=== PATIENT | male | born 1955 | race Caucasian/White ===

== ENCOUNTER 2017-07-12 08:04 | Outpatient (CLI) | payer BC ==
--- NOTE | 2017-07-12 11:27 | CT ---
CT OF ABDOMEN AND PELVIS PERFORMED WITH IV CONTRAST ENHANCEMENT: Date: 07/12/17 HISTORY: Patient with prostate cancer, with rising PSA. History of prostatectomy and radiation. COMPARISON: 04/07/15 study. FINDINGS: The lung bases are clear of any infiltrates. There is some gravity-dependent atelectasis. The liver, spleen, pancreas, and gallbladder regions appear unremarkable. The liver measures 18.7 cm in length. Spleen appears within normal limits of size. Right and left adrenal glands are normal in appearance. An upper pole right renal cyst is noted on th e anterolateral cortex. It is slightly enlarged as compared to the prior exam at 2.5 as compared to 2 .2 cm, but has benign features. A second exophytic mass involving the mid to lower pole region of the right kidney shows peripheral calcification and increased attenuation, but is stable in size at appr oximately 2.0 cm. There is a small, subcentimeter, exophytic density involving the left kidney most c ompatible with a cyst. There is no significant periaortic or mesenteric adenopathy. CT of pelvis was performed with contrast enhancement. Bladder wall is diffusely thickened. There is s ome minimal fat stranding seen within the pelvis. The sigmoid colon in this region is not distended, and therefore it was somewhat difficult to assess, although appears slightly thick-walled. There are some diverticular changes. Changes could be on the basis of post radiation. I do not appreciate any p elvic lymphadenopathy. Review of osseous structures show some arthritic changes of the spine and hips. IMPRESSION: 1. Stable appearance to a Bosniak II lesion involving the right kidney. It has peripheral calcificat ion and is of higher attenuation than a typical cyst. It is stable in size at 2.0 cm as compared to 2014 study. 2. No signs of any evidence for prostate recurrence. No signs of any development of any significant lymphadenopathy or any type of bone lesion. No liver lesion seen. 3. Bladder wall thickening and suggestion of some possible wall thickening to the sigmoid colon, whi ch is probably on the basis of post radiation change. POS: BLADIMIR
== END 2017-07-12 08:05 | disposition home or self-care (01) ==
LOC: CT 08:04
PROVIDERS: ATTEND Radiology Radiation Oncology
DX: C61 Malignant neoplasm of prostate (principal); N28.9 Disorder of kidney and ureter, unspecified; N32.89 Other specified disorders of bladder
CPT/HCPCS: 74177; 82565

== ENCOUNTER 2017-07-13 10:49 | Outpatient (CLI) | payer BC ==
--- NOTE | 2017-07-13 15:24 | NM ---
WHOLE BODY BONE SCAN: Date: 07/13/17 INDICATION: Malignant neoplasm of prostate. RADIOPHARMACEUTICAL: 30.5 mCi technetium-99m MDP IV. FINDINGS: There are new foci of radiotracer accumulation involving the posterior left acromial spine as well as the posterior left 9th rib. Additional focus is seen involving the distal left radius, which was pre sent on the prior exam and may reflect degenerative changes. Activity is seen within the left antecub ital fossa, likely related to injection site. There is some degenerative activity seen involving the feet and knees. IMPRESSION: New foci of activity involving the left posterior 9th rib and left acromial spine. In light of the pa stephane's history of prostate cancer, this is suspicious for metastatic disease. Recommend dedicated ra diographs of the left scapula, as well as left-sided rib series. Alternatively, a CT examination may be helpful of the thorax to evaluate for osseous metastatic disease in this location. POS: HILARIA
== END 2017-07-13 10:50 | disposition home or self-care (01) ==
LOC: NM 10:49
PROVIDERS: ATTEND Radiology Radiation Oncology
DX: C61 Malignant neoplasm of prostate (principal); R93.7 Abnormal findings on diagnostic imaging of other parts of musculoskeletal system; Z90.79 Acquired absence of other genital organ(s)
CPT/HCPCS: 78306; A9503

== ENCOUNTER 2017-07-27 10:50 | Outpatient (CLI) | payer BC | END 2017-07-27 10:51 | disposition home or self-care (01) | LOC: BICCT 10:50 | PROVIDERS: ATTEND Internal Medicine Medical Oncology | DX: J43.8 Other emphysema; I77.810 Thoracic aortic ectasia; G95.89 Other specified diseases of spinal cord; C79.51 Secondary malignant neoplasm of bone | CPT/HCPCS: 71250 ==

== ENCOUNTER 2017-08-27 15:49 | Outpatient (CLI) | payer BC | END 2017-08-27 15:50 | disposition home or self-care (01) | LOC: BICULT 15:49 | PROVIDERS: ATTEND Urology | DX: C61 Malignant neoplasm of prostate (principal); N43.3 Hydrocele, unspecified | CPT/HCPCS: 76870; 93976 ==

== ENCOUNTER 2017-09-06 14:21 | Outpatient (CLI) | payer BC ==
[2017-09-06 15:27] LABS: Hemoglobin 13.9 g/dL (14.0-18.0); Mean Corpuscular Hemoglobin 33.5 pg (27.0-31.0); Mean Corpuscular Volume 98.6 fl (80.0-94.0); Mean Platelet Volume 6.7 fL (7.4-10.4); Platelet Count 236 thou/uL (130-400); RBC Distribution Width 11.6 % (11.5-14.5); Red Blood Cell (RBC) Count 4.16 mill/uL (4.70-6.10); White Blood Cell (WBC) Count 8.4 thou/uL (4.8-10.8)
[2017-09-06 15:30] LABS: Bilirubin Small (Negative); Blood, Urine Negative (Negative); Clarity CLEAR (Clear); Glucose, Urine (Dipstick) Negative (Negative); Leukocyte Negative (Negative); Nitrite Negative (Negative); Protein, Urine (Dipstick) Trace mg/dL (Neg-Trace); Specific Gravity, Urine 1.033 (1.002-1.036)
[2017-09-06 15:31] LABS: Bacteria/HPF None Seen HPF (None Seen); Squamous Epithelial 0-3 HPF (0-3); WBC/HPF 0-3 HPF (0-3)
[2017-09-06 15:32] LABS: Pathc Cast-AUWi Flag 3.77 (0-2.49)
[2017-09-06 15:34] LABS: PTT 37.6 SEC (22.9-36.1); Prothrombin Time 13.7 SEC (12.0-14.7)
--- NOTE | 2017-09-06 15:45 | RAD ---
TWO VIEWS OF THE CHEST: 09/06/17 COMPARISON: None. HISTORY: Preoperative radiograph. FINDINGS: Two views of the chest show normal sized cardiomediastinal silhouette. There is no evidence of consol idation, mass, or pleural effusion. The bones are unremarkable. IMPRESSION: No evidence of acute cardiopulmonary disease. POS: [facility]
[2017-09-06 15:46] LABS: Anion Gap 12 mmol/L (10-20); BUN (Urea Nitrogen) 18 mg/dL (8.4-25.7); Calc. Creatinine Clearance 0 mL/min (70-130); Calcium 9.3 mg/dL (7.8-10.44); Carbon Dioxide 25 mmol/L (23-31); Chloride 103 mmol/L (98-107); Estimated GFR-MDRD 58; Glucose 87 mg/dL (80-115); Potassium 4.2 mmol/L (3.5-5.1); RBC/HPF 0-3 HPF (0-3); Sodium 136 mmol/L (136-145)
[2017-09-06 15:49] LABS: Hyaline Casts/LPF 7-10 HYALINE CAST LPF (0-3 Hyaline); Other Casts/LPF 0-3 FINELY GRAN LPF (0-3 Hyaline)
== END 2017-09-06 14:22 | disposition home or self-care (01) ==
LOC: LABBT 14:21
PROVIDERS: ATTEND Urology
DX: Z01.818 Encounter for other preprocedural examination (principal); C61 Malignant neoplasm of prostate; R31.29 Other microscopic hematuria
CPT/HCPCS: 71046; 80048; 81001; 85027; 85610; 85730; 87086

== ENCOUNTER 2017-09-12 07:06 | Day surgery (SDC) | payer BC ==
[2017-09-06 14:42] VITALS: BMI 21.5
[2017-09-12] MEDS ORDERED: CEFAZOLIN/Water 2 GM/20 ML SYRINGE ONE (07:56)
[2017-09-12] MEDS ORDERED: Levofloxacin 500 mg/D5W 100 ml Premix Bag ONE (07:56)
[2017-09-12] MEDS ORDERED: Bupivacaine 0.25% HCL 30 ML VIAL ONE (09:40)
[2017-09-12] MEDS ORDERED: Fentanyl 100 MCG/2 ML VIAL ONE ×3 (10:03→12:52)
[2017-09-12] MEDS ORDERED: HYDROmorphone 0.5 MG/0.5 ML SYRINGE ONE (10:03)
[2017-09-12] MEDS ORDERED: Bacitracin Zinc Ointment 30 gm TUBE ONE (11:43)
--- NOTE | 2017-09-12 13:09 | OP ---
ONCOLOGIST: Halle Bean M.D. PRIMARY CARE PHYSICIAN: Lien Ambrose M.D. PREOPERATIVE DIAGNOSES: 1. A 62-year-old male with history of [place] score 4+5 pathologic T3b N1 prostate cancer with history of seminal vesicle invasion status post robotic assisted prostatectomy, status post adjuvant RT with metastatic disease. 2. Microhematuria. 3. History of complex renal cyst, Bosniak II due to peripheral calcification on observation. POSTOPERATIVE DIAGNOSES: 1. A 62-year-old male with history of [place] score 4+5 pathologic T3b N1 prostate cancer with history of seminal vesicle invasion status post robotic assisted prostatectomy, status post adjuvant RT with metastatic disease. 2. Microhematuria. 3. History of complex renal cyst, Bosniak II due to peripheral calcification on observation. PROCEDURES: Flexible cystoscopy and bilateral simple orchiectomy. SURGEON: Dolores Alvarenga D.O. ANESTHESIA: General. COMPLICATIONS: None apparent. DISPOSITION: To recovery room in stable condition. SPECIMEN: Bilateral testes, cord structures. INTRAOPERATIVE FINDINGS: 1. Flexible cystoscopy demonstrated no evidence of urethral stricture, coapting sphincter, no evidence of bladder neck contracture, no evidence of bladder pathology, bilateral ureteral orifices located approximately 3 mm proximal to the bladder neck. 2. Large right hydrocele. INDICATIONS FOR THE PROCEDURE AND HISTORY: Mr. Henry is a 62-year-old male referred to me by Dr. Bean as patient desires to proceed with bilateral orchiectomy for surgical castration for treatment of his metastatic prostate cancer. The patient has been fully informed regarding risks and complications and expected physiologic effects of bilateral orchiectomy. Risks and complications including, but not limited to, bleeding, pain, infection, scrotal hematoma, wound complication, chronic pain, hot flashes that can occur was reviewed with patient in detail. All questions were answered to his satisfaction and he desired to proceed. DESCRIPTION OF THE PROCEDURE: After an informed consent is signed, the patient is taken to the operating room, placed in a supine position with genital and the abdomen area prepped and draped in the usual surgical sterile fashion. Again noted is a large right hydrocele as previously seen on initial consultation, scrotal ultrasound confirms simple right hydrocele. I first performed a flexible cystoscopy first demonstrating no evidence of urethral stricture. There is coapting sphincter, no evidence of bladder neck contracture and I was able to gain access into the bladder without significant issues. The bladder mucosa is grossly unremarkable. The ureteral orifices are approximately 3 mm proximal to the bladder neck. At this time, we emptied his bladder through the cystoscope and we proceeded to perform a bilateral orchiectomy. We proceeded to perform right simple orchiectomy first as there is a large right hydrocele. I used a medium raphae incision using a 15 blade. The right hydrocele was delivered through the midline scrotal incision. This was quite large. We delivered the right hydrocele intact completely through the scrotal incision. We isolated the cord to the level of the external ring. He did have some evidence of cord lipoma which was retracted cephalad. The cord was then sharply dissected and divided after sharply developed to the level of the external ring and using a large hemostat, we clamped it at the level of the external ring. The cord was divided in 2 with hemostats and suture ligated using 2-0 silk. The most proximal stump of the cord was ligated with 0 silk tie and excellent hemostasis was noted. We then approached the left hemiscrotum to the median raphe incision and the left testicle was delivered. There was no evidence of left hydrocele. The left testicle was delivered and we performed a simple orchiectomy in a similar fashion. Good hemostasis was obtained. The scrotal dartos fascia was closed separately. The left hemiscrotum was closed with 2-0 Vicryl. The right hemiscrotum dartos fascia was closed with 2-0 Vicryl as well. Prior to closing the dartos fascia, we did traverse a quarter inch [place] traversing both hemiscrotum inferiorly and sutured to skin using 3-0 nylon. The skin was closed with 2-0 chromic in a vertical mattress fashion. Bacitracin ointment and pressure dressing is applied with scrotal support. He tolerated the procedure well and transported to the recovery room in stable condition. He is discharged with [place] 5/325 #50 , Colace p.r.n., Keflex until followup appointment. We will remove his drain on followup visit next week, 09/19/2017. MEREDITH
[2017-09-12] MEDS ORDERED: HYDROcodone/Acetaminophen 5/325 mg Tablet ONE (15:11)
== END 2017-09-12 15:40 | disposition home or self-care (01) ==
LOC: SDC 07:06
PROVIDERS: ATTEND Urology
PROC: 0VTC0ZZ Resection of Bilateral Testes, Open Approach (ICD-10-PCS; principal; 2017-09-12)
PROC: 0TJB8ZZ Inspection of Bladder, Via Natural or Artificial Opening Endoscopic (ICD-10-PCS; principal; 2017-09-12)
DX: C61 Malignant neoplasm of prostate (principal); R31.29 Other microscopic hematuria; N43.3 Hydrocele, unspecified; N52.9 Male erectile dysfunction, unspecified; I10 Essential (primary) hypertension; J45.909 Unspecified asthma, uncomplicated; F17.210 Nicotine dependence, cigarettes, uncomplicated; Z90.79 Acquired absence of other genital organ(s); Z98.890 Other specified postprocedural states; Z87.898 Personal history of other specified conditions
CPT/HCPCS: 88302; 96374; J0131; J1170; J1956; J3010; S0020

== ENCOUNTER 2018-03-28 14:43 | Outpatient (CLI) | payer BC ==
[~2018-03-28 14:43] MED LIST: ISOVUE-370 76%-LOCM 1 ML ONE
--- NOTE | 2018-03-28 19:17 | CT ---
CT ABDOMEN WITH AND WITHOUT IV CONTRAST CT PELVIS WITH AND WITHOUT IV CONTRAST 03/28/18 HISTORY: Gross hematuria, complex renal cyst. COMPARISON: 07/12/17 and 08/18/15. FINDINGS: There is mild linear scarring and atelectasis present at the right lung base. Vascular calcifications are seen in the visualized coronary arteries a well as involving the abdomina l aorta and iliac arteries. Ectasia of the common iliac arteries is present bilaterally. There is a 3.1 cm hypodense lesion demonstrating fluid attenuation of the superior pole right kidney compatible with a cyst. Stable exophytic hyperdense cyst with peripheral calcifications is again seen in mid portion of the right kidney stable in size measuring 2 cm. Tiny too small to characterize hyp odense lesion also seen in the mid portion of the right kidney probably present on prior study but le ss well delineated. Subcentimeter too small to characterize hypodense lesion is seen in the inferior pole left kidney. No enhancing renal mass is present. No renal or ureteral calculi are seen bilaterally and there is no evidence of hydronephrosis. Urinary bladder is incompletely distended. The liver, spleen, pancreas, and bilateral adrenal glands demonstrate a normal CT appearance. There is a new sclerotic lesion seen within the right iliac bone measuring 11 mm with new sclerotic f oci seen within the L3 and L5 vertebral bodies, and given patient's history of prostate cancer, findi ngs are likely related to metastatic lesions. Degenerative changes are seen in the spine. There is fusion of the right lateral mass of L5 with S1. IMPRESSION: 1. Interval development of new sclerotic foci within the L3 and L5 vertebral bodies as well as t he right posterior iliac bone. Given interval change from prior study as well as patient's history o f prostate cancer, findings are worrisome for sclerotic osseous metastatic lesions. 2. Stable Bosniak type II cystic renal lesion right kidney as well as stable right renal cyst. 3. Subcentimeter too small to characterize hypodense lesions in each kidney. 4. No renal or ureteral calculi are seen bilaterally, and there is no hydronephrosis. 5. Prostatectomy. POS: HILARIA
== END 2018-03-28 14:44 | disposition home or self-care (01) ==
LOC: BICCT 14:43
PROVIDERS: ATTEND Urology
DX: R31.0 Gross hematuria (principal); N28.1 Cyst of kidney, acquired; R93.7 Abnormal findings on diagnostic imaging of other parts of musculoskeletal system; Z90.79 Acquired absence of other genital organ(s)
CPT/HCPCS: 74178; 82565

== ENCOUNTER 2018-08-02 00:45 | Outpatient (CLI) | payer BC ==
[2018-08-02 15:14] LABS: Bilirubin Small (Negative); Blood, Urine Negative (Negative); Clarity CLEAR (Clear); Glucose, Urine (Dipstick) Negative (Negative); INR-International Normal Ratio 0.9; Leukocyte Negative (Negative); Nitrite Negative (Negative); Protein, Urine (Dipstick) Trace mg/dL (Neg-Trace); Prothrombin Time 12.5 SEC (12.0-14.7); Specific Gravity, Urine 1.022 (1.002-1.036); pH, Urine 6.5 (5.0-9.0)
[2018-08-02 15:16] LABS: Bacteria/HPF None Seen HPF (None Seen); Hyaline Casts/LPF 0-3 HYALINE CAST LPF (0-3 Hyaline); Pathc Cast-AUWi Flag 0.27 (0-2.49); RBC/HPF 0-3 HPF (0-3); Squamous Epithelial 0-3 HPF (0-3); WBC/HPF 0-3 HPF (0-3)
--- NOTE | 2018-08-05 22:38 | EKG ---
Test Reason : Blood Pressure : / mmHG Vent. Rate : 054 BPM Atrial Rate : 054 BPM P-R Int : 188 ms QRS Dur : 082 ms QT Int : 446 ms P-R-T Axes : 073 066 067 degrees QTc Int : 422 ms Sinus bradycardia Anterior infarct , age undetermined Abnormal ECG When compared with ECG of 03-MAY-2015 17:04, QRS duration has decreased Anterior infarct is now Present ST no longer elevated in Inferior leads ST no longer elevated in Anterior leads Confirmed by Kate PORTILLO ([id number]) on 08/05/2018 10:38:02 PM Referred By: AILYN Confirmed By:Kate PORTILLO
== END 2018-08-02 00:46 | disposition home or self-care (01) ==
LOC: LABBT 00:45
PROVIDERS: ATTEND Urology
DX: Z01.818 Encounter for other preprocedural examination (principal); N32.9 Bladder disorder, unspecified
CPT/HCPCS: 81001; 85610; 85730; 87086; 93005; 93010

== ENCOUNTER 2018-08-07 06:09 | Day surgery (SDC) | payer BC ==
[2018-08-02 14:11] VITALS: BMI 21.5
[2018-08-02 15:07] LABS: Hemoglobin 13.5 g/dL (14.0-18.0); Mean Corpuscular HGB CONC 33.5 g/dL (32.0-36.0); Mean Corpuscular Hemoglobin 33.2 pg (27.0-31.0); Mean Corpuscular Volume 99.2 fL (78.0-98.0); Platelet Count 265 thou/uL (130-400); RBC Distribution Width 11.9 % (11.5-14.5); Red Blood Cell (RBC) Count 4.08 mill/uL (4.70-6.10); White Blood Cell (WBC) Count 8.9 thou/uL (4.8-10.8)
[2018-08-02 15:28] LABS: Anion Gap 12 mmol/L (10-20); BUN (Urea Nitrogen) 11 mg/dL (8.4-25.7); Calc. Creatinine Clearance 0 mL/min (70-130); Calcium 9.5 mg/dL (7.8-10.44); Carbon Dioxide 31 mmol/L (23-31); Chloride 101 mmol/L (98-107); Estimated GFR-MDRD 81; Glucose 110 mg/dL (80-115); Potassium 3.7 mmol/L (3.5-5.1); Sodium 140 mmol/L (136-145)
[2018-08-07] MEDS ORDERED: Levofloxacin 500 mg/D5W 100 ml Premix Bag ONE (07:07)
[2018-08-07] MEDS ORDERED: SUGAMMADEX SODIUM 200 MG/2 ML VIAL ONE (08:06)
[2018-08-07] MEDS ORDERED: Phenazopyridine HCl 97.5 MG TABLET ONE (08:47)
[2018-08-07] MEDS ORDERED: Oxybutynin 5 MG TAB ONE (08:47)
--- NOTE | 2018-08-07 12:12 | OP ---
DATE OF PROCEDURE: 08/07/2018 PREOPERATIVE DIAGNOSES: 1. A 63-year-old male with history of metastatic prostate cancer status post prostatectomy, bilateral orchiectomy. 2. History of gross hematuria. Previous local cystoscopy demonstrated nonspecific left lateral mucosal lesion about 6 mm. 3. History of subtle bulbar stricture, nonobstructing. POSTOPERATIVE DIAGNOSES: 1. A 63-year-old male with history of metastatic prostate cancer status post prostatectomy, bilateral orchiectomy. 2. History of gross hematuria. Previous local cystoscopy demonstrated nonspecific left lateral mucosal lesion about 6 mm. 3. History of subtle bulbar stricture, nonobstructing. PROCEDURES PERFORMED: Cystoscopy, bladder biopsy, fulguration ANESTHESIA: General. COMPLICATIONS: None apparent. DISPOSITION: To recovery room in stable condition. ESTIMATED BLOOD LOSS: None. SPECIMEN: Bladder biopsy. INTRAOPERATIVE FINDINGS: 1. Left lateral mucosal lesion, nonspecific, appears inflammatory, suspicion low for occult malignancy. Surface area approximately 6 mm. 2. Bilateral UOs in normal position with bilateral clear efflux of urine. 3. No history of bladder neck contracture. Surgically absent prostate. 4. Subtle bulbar stricture. This is nonobstructing, not warranting treatment. INDICATIONS FOR PROCEDURE AND HISTORY: Mr. Henry is a 63-year-old male with history of [place] score 4+5 metastatic prostate cancer, status post robotic prostatectomy, bilateral orchiectomy due to metastatic disease. He is currently on Zytiga, he underwent bilateral orchiectomy uneventfully. He presented to my office with history of intermittent gross hematuria. Local cystoscopy demonstrated a left lateral mucosal lesion. Advised re bladder biopsy, which he has deferred for a few months. Previous cytology obtained is negative. Suspicion low , however, warrants biopsy. He desires to proceed. Risks and complications and indications reviewed including, but not limited to: Bleeding, pain, infection, injury to adjacent organs, stricture formation, clot retention. Questions answered to satisfaction and desired to proceed without reservation. DESCRIPTION OF PROCEDURE: After an informed consent was signed, the patient was taken to the operating room and placed in a dorsal lithotomy position. Genital area was prepped and draped in the usual surgical sterile fashion. A 21-Scottish cystoscope was utilized for cystoscopy, which passed without difficulty. At the level of the bulbar urethra, there was a subtle nonobstructing stricture. This does not warrant treatment as the scope was easily passed. The prostate was surgically absent. No evidence of bladder neck contracture. I was easily able to enter the bladder without difficulty. The ureteral orifices are about 5 mm away from the bladder neck. Again, noted in the left lateral wall is nonspecific mucosal lesion appeared somewhat hyperemic. It does not have the appearance of typical TCC or adenocarcinoma. However, biopsy is warranted as previous. Using an endoscopic biopsy, biopsy of the lesion performed. biopsy site was then fulgurated with endoscopic [place] with good hemostasis. After the procedure, I was able to pass the 16- [place] in and out without difficulty. As the biopsy was minimal, I did not leave the catheter in situ. Bladder was completely emptied and he tolerated the procedure well. He was discharged with ciprofloxacin for 3 days and azo p.r.n. He will follow up with me in August to review pathology. Of note, his recent PSA kirit is 0.02 with no evidence of disease recurrence. Job ID: [id number] MTDD
[2018-08-07] MEDS ORDERED: Hydrocortisone Sod Succ/PF 100 mg/2 ml Vial ONE (16:14)
[2018-08-07] MEDS ORDERED: Glycopyrrolate 0.2 MG/ML 5 ML SYRINGE ONE ×2 (16:14)
[2018-08-07] MEDS ORDERED: Lidocaine 1% PF 5 ML VIAL ONE (16:14)
[2018-08-07] MEDS ORDERED: PROPOFOL 200 MG/20 ML VIAL ONE (16:14)
[2018-08-07] MEDS ORDERED: Rocuronium Bromide 10 MG/ML (10ML VIAL) ONE (16:14)
== END 2018-08-07 11:10 | disposition home or self-care (01) ==
LOC: SDC 06:09
PROVIDERS: ATTEND Urology
PROC: 0TBB8ZX Excision of Bladder, Via Natural or Artificial Opening Endoscopic, Diagnostic (ICD-10-PCS; principal; 2018-08-07)
DX: N30.20 Other chronic cystitis without hematuria (principal); N32.89 Other specified disorders of bladder; N35.912 Unspecified bulbous urethral stricture, male; F31.9 Bipolar disorder, unspecified; I10 Essential (primary) hypertension; F17.210 Nicotine dependence, cigarettes, uncomplicated; N52.9 Male erectile dysfunction, unspecified; Z85.46 Personal history of malignant neoplasm of prostate; Z90.79 Acquired absence of other genital organ(s); Z98.890 Other specified postprocedural states; Z79.82 Long term (current) use of aspirin; Z79.899 Other long term (current) drug therapy
CPT/HCPCS: 36415; 80048; 85027; 86850; 86900; 86901; 88305; 93005; 93010; J1720; J1956; J2001; J2704

== ENCOUNTER 2019-06-16 13:42 | Outpatient (CLI) | payer BC ==
--- NOTE | 2019-06-16 14:22 | RAD ---
EXAM: Chest 2 views: HISTORY: Colon cancer with cough COMPARISON: 09/06/2017 FINDINGS: There is a normal-sized cardiomediastinal silhouette. Diffuse increased interstitial markings have d eveloped since the prior chest x-ray. There is no evidence of consolidation, mass, or pleural effusion. The bones are unremarkable. IMPRESSION: Development of interstitial lung disease. This could represent interstitial edema or interstitial thi ckening from interstitial lung disease.
== END 2019-06-16 13:43 | disposition home or self-care (01) ==
LOC: BICRAD 13:42
PROVIDERS: ATTEND Family Medicine
DX: J20.9 Acute bronchitis, unspecified (principal); J84.9 Interstitial pulmonary disease, unspecified
CPT/HCPCS: 36415; 71046; 80053; 85025; 86308; 86710; 87081; 87430

== ENCOUNTER 2020-02-20 10:46 | Outpatient (CLI) | payer MEDICARE, BC ==
--- NOTE | 2020-02-20 16:18 | NM ---
NUCLEAR MEDICINE BONE SCAN: 02/20/20 HISTORY: Malignant neoplasm of prostate. COMPARISON: Nuclear medicine bone scan 2018. Delayed whole body imaging was performed after the intravenous administration of 27.4 millicuries daren hnetium 99m MDP. There is a single focus of uptake in the anterior right second rib at the costochondral junction as w ell as the anterior left 9th rib. No thoracic or lumbar foci of uptake nor pelvic uptake. The kidneys and urinary bladder are both visualized. IMPRESSION: Very focal increased radiotracer uptake within the right anterior second rib at the costochondral dina ction and left anterolateral 9th rib. This may reflect fracture. Metastatic disease cannot be totally excluded and correlation with a CT of the chest is recommended. POS: HILARIA
== END 2020-02-20 10:47 | disposition home or self-care (01) ==
LOC: NM 10:46
PROVIDERS: ATTEND Internal Medicine Medical Oncology
DX: C61 Malignant neoplasm of prostate (principal); R07.81 Pleurodynia; R94.8 Abnormal results of function studies of other organs and systems
CPT/HCPCS: 78306; A9503

== ENCOUNTER 2020-10-19 09:32 | Outpatient (CLI) | payer MEDICARE | END 2020-10-19 09:33 | disposition home or self-care (01) | LOC: NM 09:32 | PROVIDERS: ATTEND Internal Medicine Medical Oncology | DX: C61 Malignant neoplasm of prostate (principal); R94.8 Abnormal results of function studies of other organs and systems | CPT/HCPCS: 78306; A9503 ==

== ENCOUNTER 2020-10-27 14:24 | Outpatient (CLI) | payer MEDICARE ==
[~2020-10-27 14:24] MED LIST changes: -ISOVUE-370 76%-LOCM 1 ML ONE; +Iopamidol-370 76% 500 ML 1 ML ONE
== END 2020-10-27 14:25 | disposition home or self-care (01) ==
LOC: BICCT 14:24
PROVIDERS: ATTEND Internal Medicine Medical Oncology
DX: C61 Malignant neoplasm of prostate (principal); R94.8 Abnormal results of function studies of other organs and systems
CPT/HCPCS: 71260; Q9967

== ENCOUNTER 2022-02-21 16:08 | Inpatient (IN) | payer MEDICARE ==
[2022-02-21 17:25] LABS: #Basophils 0.1 thou/uL (0.0-0.2); #Eosinphils 0.3 thou/uL (0.0-0.7); #Lymphocytes 1.1 thou/uL (1.20-3.40); #Monocytes 0.6 thou/uL (0.11-0.59); #Neutrophils 7.5 thou/uL (1.40-6.50); %Basophils 0.9 % (0.0-1.0); %Eosinophils 3.4 % (0.0-10.0); %Lymphocytes 11.6 % (21.0-51.0); %Monocytes 6.2 % (0.0-10.0); %Neutrophils 77.9 % (42.0-75.0); Hemoglobin 13.1 g/dL (14.0-18.0); Mean Corpuscular HGB CONC 33.6 g/dL (32.0-36.0); Mean Corpuscular Hemoglobin 30.4 pg (27.0-31.0); Mean Corpuscular Volume 90.4 fl (78.0-98.0); Mean Platelet Volume 7.1 fL (7.4-10.4); Platelet Count 327 thou/uL (130-400); RBC Distribution Width 13.3 % (11.5-14.5); Red Blood Cell (RBC) Count 4.32 mill/uL (4.70-6.10); White Blood Cell (WBC) Count 9.6 thou/uL (4.8-10.8)
[2022-02-21] MEDS ORDERED: hydrALAZINE 20 MG/ML VIAL ONE ×2 (17:59→19:35)
[2022-02-21] MEDS ORDERED: Acetaminophen 500 MG TAB ONE (17:59)
[2022-02-21 18:00] LABS: ALT (SGPT) 8 U/L (8-55); AST (SGOT) 14 U/L (5-34); Albumin 4.4 g/dL (3.4-4.8); Alkaline Phosphatase 108 U/L (40-110); Anion Gap 12 mmol/L (10-20); BUN (Urea Nitrogen) 11 mg/dL (8.4-25.7); Calc. Creatinine Clearance 0 mL/min (70-130); Calcium 9.7 mg/dL (7.8-10.44); Carbon Dioxide 28 mmol/L (23-31); Chloride 101 mmol/L (98-107); Estimated GFR 97; Globulin 3.4 g/dL (2.4-3.5); Glucose 95 mg/dL (80-115); Potassium 3.8 mmol/L (3.5-5.1); Protein, Total 7.8 g/dL (5.8-8.1); Sodium 137 mmol/L (136-145)
[2022-02-21] MEDS ORDERED: Ondansetron PF 4 MG/2 ML Vial ONE (19:35)
[2022-02-21] MEDS ORDERED: Nitroglycerin 2% Ointment 1 INCH/1 GM Packet ONE (19:35)
[2022-02-21] MEDS ORDERED: niCARdipine 25 MG/10 ML VIAL ONE (20:40)
[2022-02-21] MEDS ORDERED: Ondansetron ODT 4 MG TAB PO PRN (21:19)
[2022-02-21] MEDS ORDERED: Amlodipine 10 MG TAB PO SCH (21:30)
[2022-02-21] MEDS ORDERED: Lisinopril 10 MG TAB ONE (21:34)
[2022-02-21] MEDS ORDERED: Amlodipine 5 MG TAB ONE (21:34)
[2022-02-22] MEDS ORDERED: Acetaminophen 500 MG TAB PO SCH (00:15)
[2022-02-22 00:54] VITALS: BMI 18.5
[2022-02-22] MEDS ORDERED: Lactated Ringer's 1,000 ML IV SCH (02:15)
[2022-02-22] MEDS ORDERED: Amlodipine 10 MG TAB PO SCH (02:45)
[2022-02-22] MEDS ORDERED: hydrALAZINE 20 MG/ML VIAL SLOW IVP SCH (02:45)
[2022-02-22] MEDS: Ondansetron PF 4 MG/2 ML Vial IVP PRN ×2 (02:55→20:29)
[2022-02-22 04:56] LABS: #Eosinphils 0.1 thou/uL (0.0-0.7); #Lymphocytes 0.7 thou/uL (1.20-3.40); #Monocytes 0.5 thou/uL (0.11-0.59); #Neutrophils 7.3 thou/uL (1.40-6.50); %Basophils 0.2 % (0.0-1.0); %Eosinophils 0.7 % (0.0-10.0); %Lymphocytes 8.6 % (21.0-51.0); %Monocytes 5.2 % (0.0-10.0); %Neutrophils 85.3 % (42.0-75.0); Hemoglobin 12.2 g/dL (14.0-18.0); Mean Corpuscular HGB CONC 32.8 g/dL (32.0-36.0); Mean Corpuscular Hemoglobin 29.4 pg (27.0-31.0); Mean Corpuscular Volume 89.6 fl (78.0-98.0); Mean Platelet Volume 7.4 fL (7.4-10.4); Platelet Count 300 thou/uL (130-400); RBC Distribution Width 13.4 % (11.5-14.5); Red Blood Cell (RBC) Count 4.14 mill/uL (4.70-6.10); White Blood Cell (WBC) Count 8.6 thou/uL (4.8-10.8)
[2022-02-22 05:24] LABS: Hemoglobin A1c 5.5 % (4.0-6.0)
[2022-02-22 05:25] LABS: ALT (SGPT) 8 U/L (8-55); AST (SGOT) 14 U/L (5-34); Alkaline Phosphatase 95 U/L (40-110); Anion Gap 14 mmol/L (10-20); BUN (Urea Nitrogen) 10 mg/dL (8.4-25.7); Bilirubin, Total 1.1 mg/dL (0.2-1.2); Calc. Creatinine Clearance 82 mL/min (70-130); Calcium 9.2 mg/dL (7.8-10.44); Carbon Dioxide 23 mmol/L (23-31); Cardiac Risk 4.7 (Less than 4.5); Chloride 101 mmol/L (98-107); Cholesterol 217 mg/dl (< 200 Desired); Estimated GFR 100; Glucose 115 mg/dL (80-115); HDL Cholesterol 46 mg/dL (>60 Neg Risk); LDL Cholesterol, Calculated 129 mg/dL; Potassium 3.5 mmol/L (3.5-5.1); Sodium 134 mmol/L (136-145); Triglycerides 208 mg/dL (Less than 150)
[2022-02-22] MEDS: Acetaminophen 325 MG TAB PO PRN ×3 (06:19→20:29)
[2022-02-22] MEDS ORDERED: diphenhydrAMINE 25 MG CAP PO SCH (08:36)
[2022-02-22] MEDS ORDERED: Metoclopramide HCl 10 MG/2 ML VIAL IVP SCH (08:45)
[2022-02-22] MEDS ORDERED: ABIRATERONE ACETATE PO SCH (09:00)
[2022-02-22] MEDS ORDERED: Lisinopril 10 MG TAB PO SCH (09:00)
[2022-02-22] MEDS: predniSONE 5 MG TAB PO SCH ×2 (09:44→20:29)
[2022-02-22] MEDS: Enoxaparin Sodium 40 MG/0.4 ML SYRINGE SC SCH (09:45)
[2022-02-22] MEDS ORDERED: Prochlorperazine Edisylate 10 MG in Sodium Chloride 0.9% 50 ML IVPB SCH (12:15)
[2022-02-22] MEDS: Atorvastatin Calcium 40 MG TAB PO SCH (20:29)
[2022-02-22] MEDS ORDERED: Amlodipine 5 MG TAB PO SCH (21:00)
[2022-02-23 04:24] LABS: #Monocytes 0.6 thou/uL (0.11-0.59); #Neutrophils 6.7 thou/uL (1.40-6.50); %Basophils 0.2 % (0.0-1.0); %Eosinophils 0.5 % (0.0-10.0); %Lymphocytes 11.4 % (21.0-51.0); %Monocytes 7.3 % (0.0-10.0); %Neutrophils 80.7 % (42.0-75.0); Hemoglobin 12.5 g/dL (14.0-18.0); Mean Corpuscular HGB CONC 32.9 g/dL (32.0-36.0); Mean Corpuscular Hemoglobin 29.6 pg (27.0-31.0); Mean Platelet Volume 7.6 fL (7.4-10.4); Platelet Count 334 thou/uL (130-400); RBC Distribution Width 13.7 % (11.5-14.5); Red Blood Cell (RBC) Count 4.22 mill/uL (4.70-6.10); White Blood Cell (WBC) Count 8.3 thou/uL (4.8-10.8)
[2022-02-23 04:47] LABS: Anion Gap 14 mmol/L (10-20); BUN (Urea Nitrogen) 17 mg/dL (8.4-25.7); Calc. Creatinine Clearance 71 mL/min (70-130); Calcium 9.8 mg/dL (7.8-10.44); Carbon Dioxide 25 mmol/L (23-31); Chloride 102 mmol/L (98-107); Estimated GFR 96; Glucose 112 mg/dL (80-115); Sodium 137 mmol/L (136-145)
[2022-02-23] MEDS: predniSONE 5 MG TAB PO SCH ×2 (08:49→20:04)
[2022-02-23] MEDS: Lisinopril 20 MG TAB PO SCH (08:49)
[2022-02-23] MEDS: Enoxaparin Sodium 40 MG/0.4 ML SYRINGE SC SCH (08:49)
[2022-02-23] MEDS: hydrALAZINE 20 MG/ML VIAL SLOW IVP PRN (17:59)
[2022-02-23] MEDS: Amlodipine 5 MG TAB PO SCH (20:04)
[2022-02-23] MEDS: Atorvastatin Calcium 40 MG TAB PO SCH (20:05)
[2022-02-24] MEDS: hydrALAZINE 20 MG/ML VIAL SLOW IVP PRN ×3 (00:32→13:46)
[2022-02-24 04:42] LABS: #Eosinphils 0.1 thou/uL (0.0-0.7); #Monocytes 0.6 thou/uL (0.11-0.59); #Neutrophils 7.7 thou/uL (1.40-6.50); %Basophils 0.2 % (0.0-1.0); %Eosinophils 0.7 % (0.0-10.0); %Lymphocytes 10.6 % (21.0-51.0); %Monocytes 6.3 % (0.0-10.0); %Neutrophils 82.1 % (42.0-75.0); Hemoglobin 12.8 g/dL (14.0-18.0); Mean Corpuscular Hemoglobin 30.2 pg (27.0-31.0); Mean Corpuscular Volume 91.7 fl (78.0-98.0); Mean Platelet Volume 7.3 fL (7.4-10.4); Platelet Count 285 thou/uL (130-400); RBC Distribution Width 13.7 % (11.5-14.5); Red Blood Cell (RBC) Count 4.24 mill/uL (4.70-6.10); White Blood Cell (WBC) Count 9.3 thou/uL (4.8-10.8)
[2022-02-24] MEDS: Acetaminophen 325 MG TAB PO PRN ×2 (04:53→11:22)
[2022-02-24] MEDS ORDERED: Prochlorperazine Edisylate 10 MG in Sodium Chloride 0.9% 50 ML IVPB SCH (06:30)
[2022-02-24] MEDS: Lisinopril 20 MG TAB PO SCH (08:47)
[2022-02-24] MEDS: Enoxaparin Sodium 40 MG/0.4 ML SYRINGE SC SCH (08:48)
[2022-02-24] MEDS: predniSONE 5 MG TAB PO SCH ×2 (11:23→20:47)
[2022-02-24] MEDS ORDERED: Naproxen 500 MG TAB PO SCH (12:00)
[2022-02-24] MEDS ORDERED: Lisinopril 20 MG TAB PO SCH (14:45)
[2022-02-24] MEDS: Atorvastatin Calcium 40 MG TAB PO SCH ×2 (20:47→21:06)
[2022-02-24] MEDS: Amlodipine 5 MG TAB PO SCH (23:19)
[2022-02-25] MEDS ORDERED: FLU VACC QS2022-23(65YR UP)/PF 240 MCG/0.7 ML SYRINGE IM ONE (01:15)
[2022-02-25] MEDS: Amlodipine 5 MG TAB PO SCH (01:56)
[2022-02-25 04:11] LABS: #Eosinphils 0.2 thou/uL (0.0-0.7); #Lymphocytes 1.4 thou/uL (1.20-3.40); #Monocytes 0.8 thou/uL (0.11-0.59); #Neutrophils 5.2 thou/uL (1.40-6.50); %Basophils 0.6 % (0.0-1.0); %Eosinophils 2.5 % (0.0-10.0); %Lymphocytes 17.8 % (21.0-51.0); %Neutrophils 68.1 % (42.0-75.0); Hemoglobin 12.9 g/dL (14.0-18.0); Mean Corpuscular HGB CONC 32.8 g/dL (32.0-36.0); Mean Corpuscular Volume 91.7 fl (78.0-98.0); Mean Platelet Volume 7.3 fL (7.4-10.4); Platelet Count 325 thou/uL (130-400); RBC Distribution Width 13.8 % (11.5-14.5); Red Blood Cell (RBC) Count 4.28 mill/uL (4.70-6.10); White Blood Cell (WBC) Count 7.6 thou/uL (4.8-10.8)
[2022-02-25] MEDS: Lisinopril 20 MG TAB PO SCH (08:47)
[2022-02-25] MEDS: Enoxaparin Sodium 40 MG/0.4 ML SYRINGE SC SCH (08:48)
[2022-02-25] MEDS: predniSONE 5 MG TAB PO SCH (11:55)
[2022-02-25 12:35] VITALS: BP 121/75; TEMP 98
== END 2022-02-25 15:30 | disposition home or self-care (01) | DRG 304 ==
LOC: ERS 16:08 → 2NO 21:07
PROVIDERS: ADMIT Internal Medicine; ATTEND Internal Medicine
DX: I16.1 Hypertensive emergency (principal); E43 Unspecified severe protein-calorie malnutrition; Z68.1 Body mass index [BMI] 19.9 or less, adult; Z20.822 Contact with and (suspected) exposure to COVID-19; I10 Essential (primary) hypertension; Z66 Do not resuscitate; F31.9 Bipolar disorder, unspecified; E78.5 Hyperlipidemia, unspecified; C61 Malignant neoplasm of prostate; Z90.79 Acquired absence of other genital organ(s); Z91.14 Patient's other noncompliance with medication regimen; Z79.899 Other long term (current) drug therapy; Z79.52 Long term (current) use of systemic steroids; Z80.9 Family history of malignant neoplasm, unspecified
CPT/HCPCS: 36415; 70450; 71045; 80048; 80053; 80061; 83036; 84484; 85025; 90471; 90662; 90732; 93005; 96361; 96374; 96375; 96376; G0008; G0009; J0360; J0780; J1650; J2405; J2765; J7120; J7512; U0003; U0005